=== PATIENT | female | born 1935 | race African-American/Black ===

== ENCOUNTER 2017-05-05 20:37 | Emergency (ER) | payer MEDICARE, BC ==
[~2017-05-05] VITALS: Ht 172.7 cm; Wt 70.3 kg
[2017-05-05 20:37] VITALS: BP 162/75
== END 2017-05-05 22:08 | disposition home or self-care (01) ==
LOC: ER 20:41
DX: S90.821A Blister (nonthermal), right foot, initial encounter (principal); E11.9 Type 2 diabetes mellitus without complications; I10 Essential (primary) hypertension; I25.2 Old myocardial infarction; X58.XXXA Exposure to other specified factors, initial encounter; Y93.89 Activity, other specified; Y92.89 Other specified places as the place of occurrence of the external cause; Y99.9 Unspecified external cause status
CPT/HCPCS: 99283; A4606; Z7610

== ENCOUNTER 2017-05-07 09:25 | Outpatient (CLI) | payer MEDICARE, BC | END 2017-05-07 23:59 | disposition home or self-care (01) | LOC: WOU 09:25 | PROVIDERS: ATTEND Podiatrist Foot & Ankle Surgery | DX: S90.822A Blister (nonthermal), left foot, initial encounter (principal); S90.521A Blister (nonthermal), right ankle, initial encounter; S90.821A Blister (nonthermal), right foot, initial encounter; X58.XXXA Exposure to other specified factors, initial encounter; Y93.01 Activity, walking, marching and hiking; Y92.89 Other specified places as the place of occurrence of the external cause; B35.1 Tinea unguium; R60.0 Localized edema; L90.9 Atrophic disorder of skin, unspecified; Z87.898 Personal history of other specified conditions; I25.2 Old myocardial infarction; E11.9 Type 2 diabetes mellitus without complications; Z79.82 Long term (current) use of aspirin; Z79.899 Other long term (current) drug therapy; Z88.6 Allergy status to analgesic agent; Z88.8 Allergy status to other drugs, medicaments and biological substances | CPT/HCPCS: 10060; 87070; 87075; A6207; A6402 ==

== ENCOUNTER 2017-05-13 11:49 | Outpatient (CLI) | payer MEDICARE, BC | END 2017-05-13 23:59 | disposition home or self-care (01) | LOC: WOU 11:49 | PROVIDERS: ATTEND Podiatrist Foot & Ankle Surgery | DX: T79.2XXA Traumatic secondary and recurrent hemorrhage and seroma, initial encounter (principal); X58.XXXA Exposure to other specified factors, initial encounter; S90.521D Blister (nonthermal), right ankle, subsequent encounter; S90.821D Blister (nonthermal), right foot, subsequent encounter; S90.822D Blister (nonthermal), left foot, subsequent encounter; X58.XXXD Exposure to other specified factors, subsequent encounter; I25.2 Old myocardial infarction; I10 Essential (primary) hypertension; E78.5 Hyperlipidemia, unspecified; Z87.891 Personal history of nicotine dependence; Z83.3 Family history of diabetes mellitus; Z88.6 Allergy status to analgesic agent; Z88.8 Allergy status to other drugs, medicaments and biological substances; E11.9 Type 2 diabetes mellitus without complications; R60.0 Localized edema; M79.672 Pain in left foot; M79.671 Pain in right foot | CPT/HCPCS: 10140; 87070; A6402 ==

== ENCOUNTER 2017-05-20 12:10 | Outpatient (CLI) | payer MEDICARE, BC | END 2017-05-20 23:59 | disposition home or self-care (01) | LOC: WOU 12:10 | PROVIDERS: ATTEND Podiatrist Foot & Ankle Surgery | DX: S91.002D Unspecified open wound, left ankle, subsequent encounter (principal); X58.XXXD Exposure to other specified factors, subsequent encounter; S90.822A Blister (nonthermal), left foot, initial encounter; X58.XXXA Exposure to other specified factors, initial encounter; Y92.89 Other specified places as the place of occurrence of the external cause; Z88.6 Allergy status to analgesic agent; Z88.8 Allergy status to other drugs, medicaments and biological substances | CPT/HCPCS: A6402 ×2; G0463 ==

== ENCOUNTER 2017-06-04 11:25 | Outpatient (CLI) | payer MEDICARE, BC | END 2017-06-04 23:59 | disposition home or self-care (01) | LOC: WOU 11:25 | PROVIDERS: ATTEND Podiatrist Foot & Ankle Surgery | DX: S90.522D Blister (nonthermal), left ankle, subsequent encounter (principal); S90.822D Blister (nonthermal), left foot, subsequent encounter; X58.XXXD Exposure to other specified factors, subsequent encounter; R60.0 Localized edema; B35.1 Tinea unguium; M20.40 Other hammer toe(s) (acquired), unspecified foot; L90.9 Atrophic disorder of skin, unspecified | CPT/HCPCS: G0463 ==

== ENCOUNTER 2017-11-24 02:56 | Emergency (ER) | payer MEDICARE, BC ==
[~2017-11-24] VITALS: Ht 177.8 cm; Wt 82.6 kg
--- NOTE | 2017-11-24 03:10 | NUR ---
TO BED 82 YO FEMALE PATIENT BIB SELF C/O ABD PAIN WITH DIARRHEA X 24 HOURS AND CHEST PAIN TONIGHT. PATIENT IS AAOX3, NAD NOTED. VSS. NONDIAPHORETIC. AMBULATORY. COMFORT MEASURES RENDERED. TELE MONITOR IN PLACE.
--- NOTE | 2017-11-24 03:18 | NUR ---
STARTED A SALINE LOCK ON THE LAC G18, BLOOD DRAWN AND SENT TO LAB.
[2017-11-24 03:37] LABS: BASOPHILS % (AUTO) 0.5 % (0.0-2.0); EOSINOPHILS % (AUTO) 10.6 % (0.0-6.0); HEMATOCRIT 37 % (33-45); LYMPHOCYTES # (AUTO) 1.4 /CMM (0.8-4.8); MEAN CORPUSCULAR HGB CONC 33 g/dl (31.0-36.0); MEAN CORPUSCULAR VOLUME 88 fL (82-100); MONOCYTES # (AUTO) 0.9 /CMM (0.1-1.30); MONOCYTES % (AUTO) 13.8 % (2.0-12.0); NEUTROPHILS # (AUTO) 3.3 /CMM (1.8-8.9); NEUTROPHILS % (AUTO) 52.1 % (43.0-81.0); PLATELET COUNT (AUTO) 166 /CMM (150-450); RDW COEFFICIENT OF VARIATION 15.9 (11.5-15.0); RED BLOOD CELL COUNT(AUTO) 4.13 MIL/uL (4.0-5.2); WHITE BLOOD COUNT (AUTO) 6.3 K/uL (4.3-11.0)
[2017-11-24 03:49] LABS: INR 0.9 (0.87-1.13)
[2017-11-24 03:53] LABS: ALANINE AMINOTRANSFERASE 24 U/L (12-78); ALBUMIN 3.7 g/dL (3.4-5.0); ALKALINE PHOSPHATASE 79 U/L (46-116); ASPARTATE AMINOTRANSFERASE 16 U/L (15-37); BILIRUBIN,TOTAL 0.4 mg/dL (0.2-1.0); CALCIUM, SERUM 9.7 mg/dL (8.5-10.1); CARBON DIOXIDE 24 mmol/L (21-32); CHLORIDE 108 mmol/L (98-107); CREATININE 1.3 mg/dL (0.6-1.3); GLUCOSE 104 mg/dL (74-106); POTASSIUM 4.3 mmol/L (3.5-5.1); SODIUM SERUM 142 mmol/L (136-145); TOTAL PROTEIN, SERUM 7.5 g/dL (6.4-8.2); UREA NITROGEN, BLOOD 22 mg/dL (7-18)
[2017-11-24 04:48] LABS: TROPONIN I < 0.017 ng/mL (0.00-0.056)
--- NOTE | 2017-11-24 05:16 | NUR ---
IV removed. Catheter intact and site benign. Pressure and 4x4 applied to site. No bleeding noted. Patient discharged to home in stable condition. Written and verbal after care instructions given. Patient verbalizes understanding of instruction. Patient is ambulatory with steady gait. vss. nad noted. no further complaints.
[2017-11-24 05:17] VITALS: BP 112/64
== END 2017-11-24 05:18 | disposition home or self-care (01) ==
LOC: ER 02:58
DX: R10.84 Generalized abdominal pain (principal); R07.9 Chest pain, unspecified; R19.7 Diarrhea, unspecified; E11.9 Type 2 diabetes mellitus without complications; I10 Essential (primary) hypertension; I25.2 Old myocardial infarction
CPT/HCPCS: 36415; 71045-TC; 80053-TC; 83690-TC; 84484-TC; 85025-TC; 85730-TC; A4606; Z7610

== ENCOUNTER 2019-08-18 02:55 | Outpatient (CLI) | payer MEDICARE, BC | END 2019-08-18 23:59 | disposition home or self-care (01) | LOC: WOU 02:55 | PROVIDERS: ATTEND Podiatrist Foot & Ankle Surgery | DX: L84 Corns and callosities (principal); M79.671 Pain in right foot; M79.672 Pain in left foot; L60.3 Nail dystrophy; L90.9 Atrophic disorder of skin, unspecified; M20.40 Other hammer toe(s) (acquired), unspecified foot | CPT/HCPCS: G0463 ==

== ENCOUNTER 2019-10-01 10:10 | Outpatient (CLI) | payer MEDICARE, BC | END 2019-10-01 23:59 | disposition home or self-care (01) | LOC: WOU 10:10 | PROVIDERS: ATTEND Podiatrist Foot & Ankle Surgery | DX: L85.9 Epidermal thickening, unspecified (principal); L84 Corns and callosities; M79.671 Pain in right foot; M79.672 Pain in left foot; L90.9 Atrophic disorder of skin, unspecified ==

== ENCOUNTER 2020-01-25 11:10 | Outpatient (CLI) | payer MEDICARE, BC | END 2020-01-25 23:59 | disposition home or self-care (01) | LOC: WOU 11:10 | PROVIDERS: ATTEND Podiatrist Foot & Ankle Surgery | DX: L84 Corns and callosities (principal); M79.672 Pain in left foot; M79.671 Pain in right foot; B35.1 Tinea unguium; L85.9 Epidermal thickening, unspecified | CPT/HCPCS: G0463 ==

== ENCOUNTER → 2020-09-06 | Outpatient (CLI) | payer MEDICARE, BC | END | disposition home or self-care (01) | LOC: WOU 13:15 | PROVIDERS: ATTEND Podiatrist Foot & Ankle Surgery | DX: L84 Corns and callosities (principal); M71.572 Other bursitis, not elsewhere classified, left ankle and foot; M20.42 Other hammer toe(s) (acquired), left foot; M20.41 Other hammer toe(s) (acquired), right foot; B35.1 Tinea unguium; L85.9 Epidermal thickening, unspecified; M79.672 Pain in left foot; M79.671 Pain in right foot | CPT/HCPCS: G0463 ==

== ENCOUNTER 2020-11-08 13:30 | Outpatient (CLI) | payer MEDICARE, BC | END 2020-11-08 23:59 | disposition home or self-care (01) | LOC: WOU 13:30 | PROVIDERS: ATTEND Podiatrist Foot & Ankle Surgery | DX: L84 Corns and callosities (principal); M71.572 Other bursitis, not elsewhere classified, left ankle and foot; L85.9 Epidermal thickening, unspecified; B35.1 Tinea unguium; M79.672 Pain in left foot; M79.671 Pain in right foot; M20.42 Other hammer toe(s) (acquired), left foot; M20.41 Other hammer toe(s) (acquired), right foot | CPT/HCPCS: G0463 ==

== ENCOUNTER 2020-11-24 14:10 | Outpatient (CLI) | payer MEDICARE, BC | END 2020-11-24 23:59 | disposition home or self-care (01) | LOC: RAD 14:10 | PROVIDERS: ATTEND Podiatrist Foot & Ankle Surgery | DX: M19.072 Primary osteoarthritis, left ankle and foot (principal); M19.071 Primary osteoarthritis, right ankle and foot; M85.872 Other specified disorders of bone density and structure, left ankle and foot; M20.42 Other hammer toe(s) (acquired), left foot; M20.41 Other hammer toe(s) (acquired), right foot ==

== ENCOUNTER 2020-12-13 13:50 | Outpatient (CLI) | payer MEDICARE, BC | END 2020-12-13 23:59 | disposition home or self-care (01) | LOC: WOU 13:50 | PROVIDERS: ATTEND Podiatrist Foot & Ankle Surgery | DX: L84 Corns and callosities (principal); M20.42 Other hammer toe(s) (acquired), left foot; M20.41 Other hammer toe(s) (acquired), right foot; L85.9 Epidermal thickening, unspecified; B35.1 Tinea unguium; M71.572 Other bursitis, not elsewhere classified, left ankle and foot; M79.672 Pain in left foot; M79.671 Pain in right foot | CPT/HCPCS: G0463 ==

== ENCOUNTER 2021-01-26 11:15 | Outpatient (CLI) | payer MEDICARE, BC ==
[2021-01-26] MEDS ORDERED: UREA 10% -AHA 4% CREAM 57 GM TUBE ONE (11:52)
== END 2021-01-26 23:59 | disposition home or self-care (01) ==
LOC: WOU 11:15
PROVIDERS: ATTEND Podiatrist Foot & Ankle Surgery
DX: M71.572 Other bursitis, not elsewhere classified, left ankle and foot (principal); L84 Corns and callosities; L85.9 Epidermal thickening, unspecified; B35.1 Tinea unguium; M20.42 Other hammer toe(s) (acquired), left foot; M20.41 Other hammer toe(s) (acquired), right foot; M79.672 Pain in left foot; M79.671 Pain in right foot
CPT/HCPCS: G0463

== ENCOUNTER 2021-02-28 13:25 | Outpatient (CLI) | payer MEDICARE, BC | END 2021-02-28 23:59 | disposition home or self-care (01) | LOC: WOU 13:25 | PROVIDERS: ATTEND Podiatrist Foot & Ankle Surgery | DX: L84 Corns and callosities (principal); M71.572 Other bursitis, not elsewhere classified, left ankle and foot; B35.1 Tinea unguium; M20.42 Other hammer toe(s) (acquired), left foot; M20.41 Other hammer toe(s) (acquired), right foot; M79.672 Pain in left foot; M79.671 Pain in right foot; L85.9 Epidermal thickening, unspecified | CPT/HCPCS: G0463 ==

== ENCOUNTER 2021-04-11 13:57 | Outpatient (CLI) | payer MEDICARE, BC | END 2021-04-11 23:59 | disposition home or self-care (01) | LOC: WOU 13:57 | PROVIDERS: ATTEND Podiatrist Foot & Ankle Surgery | DX: L60.0 Ingrowing nail (principal); L84 Corns and callosities; B35.1 Tinea unguium; M79.672 Pain in left foot; M79.671 Pain in right foot; E11.9 Type 2 diabetes mellitus without complications; I10 Essential (primary) hypertension; E78.5 Hyperlipidemia, unspecified | CPT/HCPCS: G0463 ==

== ENCOUNTER 2021-07-06 11:30 | Outpatient (CLI) | payer MEDICARE, BC | END 2021-07-06 23:59 | disposition home or self-care (01) | LOC: WOU 11:30 | PROVIDERS: ATTEND Podiatrist Foot & Ankle Surgery | DX: L60.0 Ingrowing nail (principal); L84 Corns and callosities; B35.1 Tinea unguium; M79.672 Pain in left foot; M79.671 Pain in right foot | CPT/HCPCS: G0463 ==

== ENCOUNTER 2021-08-03 11:50 | Outpatient (CLI) | payer MEDICARE, BC | END 2021-08-03 23:59 | disposition home or self-care (01) | LOC: WOU 11:50 | PROVIDERS: ATTEND Podiatrist Foot & Ankle Surgery | DX: L60.0 Ingrowing nail (principal); B35.1 Tinea unguium; L84 Corns and callosities; M20.42 Other hammer toe(s) (acquired), left foot; M20.41 Other hammer toe(s) (acquired), right foot; M79.672 Pain in left foot; M79.671 Pain in right foot | CPT/HCPCS: G0463 ==

== ENCOUNTER 2021-08-29 14:15 | Outpatient (CLI) | payer MEDICARE, BC | END 2021-08-29 23:59 | disposition home or self-care (01) | LOC: WOU 14:15 | PROVIDERS: ATTEND Podiatrist Foot & Ankle Surgery | DX: L60.0 Ingrowing nail (principal); L84 Corns and callosities; B35.1 Tinea unguium; M79.672 Pain in left foot; M79.671 Pain in right foot; M62.579 Muscle wasting and atrophy, not elsewhere classified, unspecified ankle and foot; M20.42 Other hammer toe(s) (acquired), left foot; M20.41 Other hammer toe(s) (acquired), right foot | CPT/HCPCS: G0463 ==

== ENCOUNTER → 2021-09-19 | Outpatient (CLI) | payer MEDICARE, BC | END | disposition home or self-care (01) | LOC: WOU 14:00 | PROVIDERS: ATTEND Podiatrist Foot & Ankle Surgery | DX: L84 Corns and callosities (principal); L60.0 Ingrowing nail; B35.1 Tinea unguium; M20.42 Other hammer toe(s) (acquired), left foot; M20.41 Other hammer toe(s) (acquired), right foot; M62.579 Muscle wasting and atrophy, not elsewhere classified, unspecified ankle and foot; M79.672 Pain in left foot; M79.671 Pain in right foot | CPT/HCPCS: G0463 ==

== ENCOUNTER 2021-10-10 13:30 | Outpatient (CLI) | payer MEDICARE, BC | END 2021-10-10 23:59 | disposition home or self-care (01) | LOC: WOU 13:30 | PROVIDERS: ATTEND Podiatrist Foot & Ankle Surgery | DX: L60.3 Nail dystrophy (principal); L84 Corns and callosities; B35.1 Tinea unguium; M20.42 Other hammer toe(s) (acquired), left foot; M20.41 Other hammer toe(s) (acquired), right foot; M79.672 Pain in left foot; M79.671 Pain in right foot | CPT/HCPCS: G0463 ==

== ENCOUNTER 2021-10-31 13:00 | Outpatient (CLI) | payer MEDICARE, BC | END 2021-10-31 23:59 | disposition home or self-care (01) | LOC: WOU 13:00 | PROVIDERS: ATTEND Podiatrist Foot & Ankle Surgery | DX: M20.42 Other hammer toe(s) (acquired), left foot (principal); M20.41 Other hammer toe(s) (acquired), right foot; L84 Corns and callosities; B35.1 Tinea unguium; L60.3 Nail dystrophy; M79.672 Pain in left foot; M79.671 Pain in right foot | CPT/HCPCS: G0463 ==

== ENCOUNTER 2021-11-21 14:45 | Outpatient (CLI) | payer MEDICARE, BC | END 2021-11-21 23:59 | disposition home or self-care (01) | LOC: WOU 14:45 | PROVIDERS: ATTEND Podiatrist Foot & Ankle Surgery | DX: L03.116 Cellulitis of left lower limb (principal); R60.0 Localized edema; L84 Corns and callosities; M20.42 Other hammer toe(s) (acquired), left foot; M20.41 Other hammer toe(s) (acquired), right foot; L60.3 Nail dystrophy; M79.672 Pain in left foot; M79.671 Pain in right foot; B35.1 Tinea unguium; I10 Essential (primary) hypertension; M25.572 Pain in left ankle and joints of left foot; Z87.891 Personal history of nicotine dependence | CPT/HCPCS: G0463 ==

== ENCOUNTER 2021-11-30 11:05 | Outpatient (CLI) | payer MEDICARE, BC ==
[2021-11-30] MEDS ORDERED: LIDOCAINE 2% JEL 5 ML TUBE ONE (11:46)
[2021-11-30] MEDS ORDERED: CLOTRIMAZOLE 1% 15 GM TUBE TP ONE (13:38)
[2021-11-30] MEDS ORDERED: TRIAMCINOLONE ACETONIDE 0.1% CR 15 GM TUBE TP ONE (13:38)
== END 2021-11-30 23:59 | disposition home or self-care (01) ==
LOC: WOU 11:05
PROVIDERS: ATTEND Podiatrist Foot & Ankle Surgery
DX: I87.2 Venous insufficiency (chronic) (peripheral) (principal); M20.42 Other hammer toe(s) (acquired), left foot; M20.41 Other hammer toe(s) (acquired), right foot; L84 Corns and callosities; B35.1 Tinea unguium; L60.3 Nail dystrophy; M79.672 Pain in left foot; M79.671 Pain in right foot; M25.572 Pain in left ankle and joints of left foot
CPT/HCPCS: G0463

== ENCOUNTER 2021-12-04 11:50 | Outpatient (CLI) | payer MEDICARE, BC ==
[2021-12-04] MEDS ORDERED: LIDOCAINE 2% JEL 5 ML TUBE ONE (12:14)
== END 2021-12-04 23:59 | disposition home or self-care (01) ==
LOC: WOU 11:50
PROVIDERS: ATTEND Podiatrist Foot & Ankle Surgery
DX: L03.116 Cellulitis of left lower limb (principal); M20.42 Other hammer toe(s) (acquired), left foot; M20.41 Other hammer toe(s) (acquired), right foot; B35.1 Tinea unguium; L60.3 Nail dystrophy; L84 Corns and callosities; R60.1 Generalized edema; I10 Essential (primary) hypertension; M25.572 Pain in left ankle and joints of left foot; Z87.891 Personal history of nicotine dependence
CPT/HCPCS: G0463

== ENCOUNTER 2021-12-07 11:45 | Outpatient (CLI) | payer MEDICARE, BC ==
[2021-12-07] MEDS ORDERED: LIDOCAINE 2% JEL 5 ML TUBE ONE (12:04)
== END 2021-12-07 23:59 | disposition home or self-care (01) ==
LOC: WOU 11:45
PROVIDERS: ATTEND Podiatrist Foot & Ankle Surgery
DX: I87.312 Chronic venous hypertension (idiopathic) with ulcer of left lower extremity (principal); L97.828 Non-pressure chronic ulcer of other part of left lower leg with other specified severity; L03.116 Cellulitis of left lower limb; M20.42 Other hammer toe(s) (acquired), left foot; M20.41 Other hammer toe(s) (acquired), right foot; L84 Corns and callosities; B35.1 Tinea unguium; M79.672 Pain in left foot; M79.671 Pain in right foot; L60.3 Nail dystrophy; R60.1 Generalized edema
CPT/HCPCS: 29581; A6207; A6209

== ENCOUNTER 2021-12-11 11:50 | Outpatient (CLI) | payer MEDICARE, BC | END 2021-12-11 23:59 | disposition home or self-care (01) | LOC: WOU 11:50 | PROVIDERS: ATTEND Podiatrist Foot & Ankle Surgery | DX: I87.312 Chronic venous hypertension (idiopathic) with ulcer of left lower extremity (principal); L97.328 Non-pressure chronic ulcer of left ankle with other specified severity; R60.0 Localized edema; M20.42 Other hammer toe(s) (acquired), left foot; M20.41 Other hammer toe(s) (acquired), right foot; E11.9 Type 2 diabetes mellitus without complications; B35.1 Tinea unguium; L84 Corns and callosities; M79.672 Pain in left foot; M79.671 Pain in right foot; L60.3 Nail dystrophy | CPT/HCPCS: G0463 ==

== ENCOUNTER 2021-12-14 10:15 | Outpatient (CLI) | payer MEDICARE, BC ==
[2021-12-14] MEDS ORDERED: LIDOCAINE 2% JEL 5 ML TUBE ONE (10:41)
== END 2021-12-14 23:59 | disposition home health service (06) ==
LOC: WOU 10:15
PROVIDERS: ATTEND Podiatrist Foot & Ankle Surgery
DX: I87.312 Chronic venous hypertension (idiopathic) with ulcer of left lower extremity (principal); L97.828 Non-pressure chronic ulcer of other part of left lower leg with other specified severity; M20.42 Other hammer toe(s) (acquired), left foot; M20.41 Other hammer toe(s) (acquired), right foot; L84 Corns and callosities; L60.3 Nail dystrophy; R60.1 Generalized edema; M79.672 Pain in left foot; M79.671 Pain in right foot; B35.1 Tinea unguium
CPT/HCPCS: G0463

== ENCOUNTER 2021-12-18 11:40 | Outpatient (CLI) | payer MEDICARE, BC ==
[2021-12-18] MEDS ORDERED: LIDOCAINE 2% JEL 5 ML TUBE ONE (12:18)
== END 2021-12-18 23:59 | disposition home health service (06) ==
LOC: WOU 11:40
PROVIDERS: ATTEND Podiatrist Foot & Ankle Surgery
DX: I87.312 Chronic venous hypertension (idiopathic) with ulcer of left lower extremity (principal); L97.328 Non-pressure chronic ulcer of left ankle with other specified severity; M25.572 Pain in left ankle and joints of left foot; M20.42 Other hammer toe(s) (acquired), left foot; M20.41 Other hammer toe(s) (acquired), right foot; M79.672 Pain in left foot; M79.671 Pain in right foot; B35.1 Tinea unguium; L84 Corns and callosities; L60.3 Nail dystrophy
CPT/HCPCS: G0463

== ENCOUNTER → 2021-12-21 | Outpatient (CLI) | payer MEDICARE, BC ==
[~2021-12-21] MED LIST: LIDOCAINE SOLN 4% 50 ML BOTTLE ONE
== END | disposition home health service (06) ==
LOC: WOU 11:35
PROVIDERS: ATTEND Podiatrist Foot & Ankle Surgery
DX: I87.312 Chronic venous hypertension (idiopathic) with ulcer of left lower extremity (principal); L97.822 Non-pressure chronic ulcer of other part of left lower leg with fat layer exposed; L97.828 Non-pressure chronic ulcer of other part of left lower leg with other specified severity; M20.42 Other hammer toe(s) (acquired), left foot; M20.41 Other hammer toe(s) (acquired), right foot; L84 Corns and callosities; B35.1 Tinea unguium; L60.3 Nail dystrophy; M25.572 Pain in left ankle and joints of left foot; R60.1 Generalized edema; M79.672 Pain in left foot; M79.671 Pain in right foot; Z87.891 Personal history of nicotine dependence

== ENCOUNTER 2021-12-26 13:40 | Outpatient (CLI) | payer MEDICARE, BC ==
[2021-12-26] MEDS ORDERED: Z GUARD REMEDY 2 OZ OINT TP ONE (14:07)
[2021-12-26] MEDS ORDERED: LIDOCAINE 2% JEL 5 ML TUBE ONE (14:28)
== END 2021-12-26 23:59 | disposition home health service (06) ==
LOC: WOU 13:40
PROVIDERS: ATTEND Podiatrist Foot & Ankle Surgery
DX: I87.312 Chronic venous hypertension (idiopathic) with ulcer of left lower extremity (principal); L97.822 Non-pressure chronic ulcer of other part of left lower leg with fat layer exposed; M20.42 Other hammer toe(s) (acquired), left foot; M20.41 Other hammer toe(s) (acquired), right foot; B35.1 Tinea unguium; L84 Corns and callosities; L60.3 Nail dystrophy; M25.572 Pain in left ankle and joints of left foot; M79.672 Pain in left foot; M79.671 Pain in right foot

== ENCOUNTER 2022-01-02 09:30 | Outpatient (CLI) | payer MEDICARE, BC | END 2022-01-02 23:59 | disposition home or self-care (01) | LOC: WOU 09:30 | PROVIDERS: ATTEND Podiatrist Foot & Ankle Surgery | DX: L03.116 Cellulitis of left lower limb (principal); I87.312 Chronic venous hypertension (idiopathic) with ulcer of left lower extremity; L97.329 Non-pressure chronic ulcer of left ankle with unspecified severity; L84 Corns and callosities; L60.3 Nail dystrophy; R60.1 Generalized edema; M20.42 Other hammer toe(s) (acquired), left foot; M20.41 Other hammer toe(s) (acquired), right foot; M25.572 Pain in left ankle and joints of left foot; M79.672 Pain in left foot; M79.671 Pain in right foot | CPT/HCPCS: G0463 ==

== ENCOUNTER 2022-01-09 13:45 | Outpatient (CLI) | payer MEDICARE, BC ==
[2022-01-09] MEDS ORDERED: GENTAMICIN 0.1% CREAM 15 GM TUBE ONE (15:02)
[2022-01-09] MEDS ORDERED: LIDOCAINE 2% JEL 5 ML TUBE ONE (15:13)
== END 2022-01-09 23:59 | disposition home health service (06) ==
LOC: WOU 13:45
PROVIDERS: ATTEND Podiatrist Foot & Ankle Surgery
DX: I87.312 Chronic venous hypertension (idiopathic) with ulcer of left lower extremity (principal); L97.822 Non-pressure chronic ulcer of other part of left lower leg with fat layer exposed; L03.116 Cellulitis of left lower limb; M20.42 Other hammer toe(s) (acquired), left foot; M20.41 Other hammer toe(s) (acquired), right foot; B35.1 Tinea unguium; L84 Corns and callosities; L60.3 Nail dystrophy; M25.572 Pain in left ankle and joints of left foot; R60.1 Generalized edema
CPT/HCPCS: G0463

== ENCOUNTER 2022-01-11 11:20 | Outpatient (CLI) | payer MEDICARE, BC ==
[2022-01-11] MEDS ORDERED: LIDOCAINE 2% JEL 5 ML TUBE ONE ×2 (11:48→11:49)
[2022-01-11] MEDS ORDERED: GENTAMICIN 0.1% CREAM 15 GM TUBE ONE (12:08)
[2022-01-11] MEDS ORDERED: DAKINS HALF STRENGTH (0.25%) 480 ML BOTTLE ONE (12:17)
== END 2022-01-11 23:59 | disposition home health service (06) ==
LOC: WOU 11:20
PROVIDERS: ATTEND Podiatrist Foot & Ankle Surgery
DX: I87.312 Chronic venous hypertension (idiopathic) with ulcer of left lower extremity (principal); L97.822 Non-pressure chronic ulcer of other part of left lower leg with fat layer exposed; L03.116 Cellulitis of left lower limb; E11.9 Type 2 diabetes mellitus without complications; R60.1 Generalized edema; M20.42 Other hammer toe(s) (acquired), left foot; M20.41 Other hammer toe(s) (acquired), right foot; L84 Corns and callosities; L60.3 Nail dystrophy; M79.672 Pain in left foot; M79.671 Pain in right foot
CPT/HCPCS: 87070 ×2; 87075 ×2; 87077; 87186; 97597; A6402

== ENCOUNTER 2022-01-16 13:50 | Outpatient (CLI) | payer MEDICARE, BC ==
[2022-01-16] MEDS ORDERED: LIDOCAINE SOLN 4% 50 ML BOTTLE ONE (14:27)
== END 2022-01-16 23:59 | disposition home health service (06) ==
LOC: WOU 13:50
PROVIDERS: ATTEND Podiatrist Foot & Ankle Surgery
DX: I87.312 Chronic venous hypertension (idiopathic) with ulcer of left lower extremity (principal); L97.822 Non-pressure chronic ulcer of other part of left lower leg with fat layer exposed; L03.116 Cellulitis of left lower limb; B35.1 Tinea unguium; L60.3 Nail dystrophy; L84 Corns and callosities; M79.672 Pain in left foot; M79.671 Pain in right foot; M20.42 Other hammer toe(s) (acquired), left foot; M20.41 Other hammer toe(s) (acquired), right foot; R60.1 Generalized edema; M25.572 Pain in left ankle and joints of left foot
CPT/HCPCS: 11042; 11045; A6207 ×2

== ENCOUNTER 2022-01-18 11:35 | Outpatient (CLI) | payer MEDICARE, BC ==
[2022-01-18] MEDS ORDERED: LIDOCAINE SOLN 4% 50 ML BOTTLE ONE (11:41)
[2022-01-18] MEDS ORDERED: GENTAMICIN 0.1% CREAM 15 GM TUBE ONE (12:17)
[2022-01-18] MEDS ORDERED: Z GUARD REMEDY 2 OZ OINT TP ONE (12:17)
[2022-01-18] MEDS ORDERED: DAKINS HALF STRENGTH (0.25%) 480 ML BOTTLE ONE (12:34)
== END 2022-01-18 23:59 | disposition home health service (06) ==
LOC: WOU 11:35
PROVIDERS: ATTEND Podiatrist Foot & Ankle Surgery
DX: I87.312 Chronic venous hypertension (idiopathic) with ulcer of left lower extremity (principal); L97.822 Non-pressure chronic ulcer of other part of left lower leg with fat layer exposed; L84 Corns and callosities; L03.116 Cellulitis of left lower limb; M20.42 Other hammer toe(s) (acquired), left foot; M20.41 Other hammer toe(s) (acquired), right foot; M25.572 Pain in left ankle and joints of left foot; M79.672 Pain in left foot; M79.671 Pain in right foot; B35.1 Tinea unguium; L60.3 Nail dystrophy
CPT/HCPCS: 11042; 11055; A6207

== ENCOUNTER 2022-01-23 14:15 | Outpatient (CLI) | payer MEDICARE, BC ==
[2022-01-23] MEDS ORDERED: COLLAGENASE 5 GM TUBE UD TP ONE (15:26)
[2022-01-23] MEDS ORDERED: Z GUARD REMEDY 2 OZ OINT TP ONE (15:26)
== END 2022-01-23 23:59 | disposition home health service (06) ==
LOC: WOU 14:15
PROVIDERS: ATTEND Podiatrist Foot & Ankle Surgery
DX: I87.312 Chronic venous hypertension (idiopathic) with ulcer of left lower extremity (principal); L97.822 Non-pressure chronic ulcer of other part of left lower leg with fat layer exposed; L03.116 Cellulitis of left lower limb; R60.1 Generalized edema; M20.42 Other hammer toe(s) (acquired), left foot; M20.41 Other hammer toe(s) (acquired), right foot; M79.672 Pain in left foot; M79.671 Pain in right foot; L84 Corns and callosities; B35.1 Tinea unguium
CPT/HCPCS: 11042; A6207

== ENCOUNTER 2022-01-30 14:10 | Outpatient (CLI) | payer MEDICARE, BC ==
[2022-01-30] MEDS ORDERED: Z GUARD REMEDY 2 OZ OINT TP ONE (14:40)
[2022-01-30] MEDS ORDERED: COLLAGENASE 5 GM TUBE UD TP ONE (14:41)
== END 2022-01-30 23:59 | disposition home health service (06) ==
LOC: WOU 14:10
PROVIDERS: ATTEND Podiatrist Foot & Ankle Surgery
DX: I87.312 Chronic venous hypertension (idiopathic) with ulcer of left lower extremity (principal); L97.322 Non-pressure chronic ulcer of left ankle with fat layer exposed; R60.1 Generalized edema; M20.42 Other hammer toe(s) (acquired), left foot; M20.41 Other hammer toe(s) (acquired), right foot; L84 Corns and callosities; L60.3 Nail dystrophy; M25.572 Pain in left ankle and joints of left foot; B35.1 Tinea unguium
CPT/HCPCS: G0463

== ENCOUNTER 2022-02-06 14:10 | Outpatient (CLI) | payer MEDICARE, BC ==
[2022-02-06] MEDS ORDERED: Z GUARD REMEDY 2 OZ OINT TP ONE (14:42)
== END 2022-02-06 23:59 | disposition home health service (06) ==
LOC: WOU 14:10
PROVIDERS: ATTEND Podiatrist Foot & Ankle Surgery
DX: I87.312 Chronic venous hypertension (idiopathic) with ulcer of left lower extremity (principal); L97.822 Non-pressure chronic ulcer of other part of left lower leg with fat layer exposed; M20.42 Other hammer toe(s) (acquired), left foot; L84 Corns and callosities; M20.41 Other hammer toe(s) (acquired), right foot; L60.3 Nail dystrophy; R60.1 Generalized edema; B35.1 Tinea unguium; M79.672 Pain in left foot; M25.572 Pain in left ankle and joints of left foot; M79.671 Pain in right foot; I10 Essential (primary) hypertension; Z87.891 Personal history of nicotine dependence
CPT/HCPCS: G0463

== ENCOUNTER 2022-02-13 14:15 | Outpatient (CLI) | payer MEDICARE, BC ==
[2022-02-13] MEDS ORDERED: Z GUARD REMEDY 2 OZ OINT TP ONE (15:10)
== END 2022-02-13 23:59 | disposition home health service (06) ==
LOC: WOU 14:15
PROVIDERS: ATTEND Podiatrist Foot & Ankle Surgery
DX: I87.312 Chronic venous hypertension (idiopathic) with ulcer of left lower extremity (principal); L97.822 Non-pressure chronic ulcer of other part of left lower leg with fat layer exposed; M25.572 Pain in left ankle and joints of left foot; M20.42 Other hammer toe(s) (acquired), left foot; M20.41 Other hammer toe(s) (acquired), right foot; L84 Corns and callosities; B35.1 Tinea unguium; M79.672 Pain in left foot; M79.671 Pain in right foot; L60.3 Nail dystrophy; R60.1 Generalized edema
CPT/HCPCS: 11042; 11045

== ENCOUNTER 2022-02-20 14:10 | Outpatient (CLI) | payer MEDICARE, BC ==
[2022-02-20] MEDS ORDERED: Z GUARD REMEDY 2 OZ OINT TP ONE (15:11)
== END 2022-02-20 23:59 | disposition home health service (06) ==
LOC: WOU 14:10
PROVIDERS: ATTEND Podiatrist Foot & Ankle Surgery
DX: I87.312 Chronic venous hypertension (idiopathic) with ulcer of left lower extremity (principal); L97.822 Non-pressure chronic ulcer of other part of left lower leg with fat layer exposed; M20.42 Other hammer toe(s) (acquired), left foot; M20.41 Other hammer toe(s) (acquired), right foot; L84 Corns and callosities; B35.1 Tinea unguium; M79.672 Pain in left foot; M79.671 Pain in right foot; L60.3 Nail dystrophy
CPT/HCPCS: G0463

== ENCOUNTER 2022-02-27 13:20 | Outpatient (CLI) | payer MEDICARE, BC ==
[2022-02-27] MEDS ORDERED: GENTAMICIN 0.1% CREAM 15 GM TUBE ONE (14:05)
[2022-02-27] MEDS ORDERED: COLLAGENASE 5 GM TUBE UD TP ONE (14:06)
[2022-02-27] MEDS ORDERED: Z GUARD REMEDY 2 OZ OINT TP ONE (14:13)
== END 2022-02-27 23:59 | disposition home health service (06) ==
LOC: WOU 13:20
PROVIDERS: ATTEND Podiatrist Foot & Ankle Surgery
DX: I87.312 Chronic venous hypertension (idiopathic) with ulcer of left lower extremity (principal); L97.822 Non-pressure chronic ulcer of other part of left lower leg with fat layer exposed; M20.42 Other hammer toe(s) (acquired), left foot; M20.41 Other hammer toe(s) (acquired), right foot; L84 Corns and callosities; B35.1 Tinea unguium; M79.672 Pain in left foot; M79.671 Pain in right foot; M25.572 Pain in left ankle and joints of left foot
CPT/HCPCS: G0463

== ENCOUNTER 2022-03-06 13:15 | Outpatient (CLI) | payer MEDICARE, BC ==
[2022-03-06] MEDS ORDERED: COLLAGENASE 5 GM TUBE UD TP ONE (13:48)
[2022-03-06] MEDS ORDERED: GENTAMICIN 0.1% CREAM 15 GM TUBE ONE (13:49)
[2022-03-06] MEDS ORDERED: Z GUARD REMEDY 2 OZ OINT TP ONE (13:56)
== END 2022-03-06 23:59 | disposition home health service (06) ==
LOC: WOU 13:15
PROVIDERS: ATTEND Podiatrist Foot & Ankle Surgery
DX: I87.312 Chronic venous hypertension (idiopathic) with ulcer of left lower extremity (principal); L97.822 Non-pressure chronic ulcer of other part of left lower leg with fat layer exposed; L97.828 Non-pressure chronic ulcer of other part of left lower leg with other specified severity; M20.42 Other hammer toe(s) (acquired), left foot; M20.41 Other hammer toe(s) (acquired), right foot; M79.672 Pain in left foot; M79.671 Pain in right foot; L60.3 Nail dystrophy; L84 Corns and callosities; M25.572 Pain in left ankle and joints of left foot
CPT/HCPCS: G0463

== ENCOUNTER 2022-03-12 11:15 | Outpatient (CLI) | payer MEDICARE, BC ==
[2022-03-12] MEDS ORDERED: GENTAMICIN 0.1% CREAM 15 GM TUBE ONE (11:52)
[2022-03-12] MEDS ORDERED: Z GUARD REMEDY 2 OZ OINT TP ONE (11:53)
[2022-03-12] MEDS ORDERED: COLLAGENASE 5 GM TUBE UD TP ONE (11:53)
== END 2022-03-12 23:59 | disposition home or self-care (01) ==
LOC: WOU 11:15
PROVIDERS: ATTEND Podiatrist Foot & Ankle Surgery
DX: I87.312 Chronic venous hypertension (idiopathic) with ulcer of left lower extremity (principal); L97.822 Non-pressure chronic ulcer of other part of left lower leg with fat layer exposed; L84 Corns and callosities; E11.9 Type 2 diabetes mellitus without complications; Z87.891 Personal history of nicotine dependence; Z83.3 Family history of diabetes mellitus; Z88.6 Allergy status to analgesic agent; Z88.8 Allergy status to other drugs, medicaments and biological substances; E78.5 Hyperlipidemia, unspecified; I10 Essential (primary) hypertension; I25.2 Old myocardial infarction; R60.1 Generalized edema; M20.42 Other hammer toe(s) (acquired), left foot; M20.41 Other hammer toe(s) (acquired), right foot; M25.572 Pain in left ankle and joints of left foot
CPT/HCPCS: 11055; G0463

== ENCOUNTER 2022-03-20 14:30 | Outpatient (CLI) | payer MEDICARE, BC ==
[2022-03-20] MEDS ORDERED: Z GUARD REMEDY 2 OZ OINT TP ONE (15:08)
[2022-03-20] MEDS ORDERED: GENTAMICIN 0.1% CREAM 15 GM TUBE ONE (15:08)
[2022-03-20] MEDS ORDERED: COLLAGENASE 5 GM TUBE UD TP ONE (15:08)
== END 2022-03-20 23:59 | disposition home or self-care (01) ==
LOC: WOU 14:30
PROVIDERS: ATTEND Podiatrist Foot & Ankle Surgery
DX: I87.312 Chronic venous hypertension (idiopathic) with ulcer of left lower extremity (principal); L97.822 Non-pressure chronic ulcer of other part of left lower leg with fat layer exposed; R60.1 Generalized edema; I10 Essential (primary) hypertension; E78.5 Hyperlipidemia, unspecified; Z83.3 Family history of diabetes mellitus; Z84.1 Family history of disorders of kidney and ureter; L84 Corns and callosities; B35.1 Tinea unguium; L60.3 Nail dystrophy; M25.572 Pain in left ankle and joints of left foot; M20.42 Other hammer toe(s) (acquired), left foot; M20.41 Other hammer toe(s) (acquired), right foot; M79.672 Pain in left foot; M79.671 Pain in right foot
CPT/HCPCS: G0463

== ENCOUNTER → 2022-03-29 | Outpatient (CLI) | payer MEDICARE, BC ==
[~2022-03-29] MED LIST changes: +COLLAGENASE 5 GM TUBE UD TP ONE; +GENTAMICIN 0.1% CREAM 15 GM TUBE ONE; +HYDROCORTISONE 1% CREAM 28.35 GM TUBE TP ONE; -LIDOCAINE SOLN 4% 50 ML BOTTLE ONE; +Z GUARD REMEDY 2 OZ OINT TP ONE
== END | disposition home or self-care (01) ==
LOC: WOU 11:20
PROVIDERS: ATTEND Podiatrist Foot & Ankle Surgery
DX: I87.312 Chronic venous hypertension (idiopathic) with ulcer of left lower extremity (principal); L97.822 Non-pressure chronic ulcer of other part of left lower leg with fat layer exposed; L97.828 Non-pressure chronic ulcer of other part of left lower leg with other specified severity; M20.42 Other hammer toe(s) (acquired), left foot; M20.41 Other hammer toe(s) (acquired), right foot; L84 Corns and callosities; L60.3 Nail dystrophy; B35.1 Tinea unguium; M79.672 Pain in left foot; M79.671 Pain in right foot; M25.572 Pain in left ankle and joints of left foot
CPT/HCPCS: 11042

== ENCOUNTER 2022-04-03 13:30 | Outpatient (CLI) | payer MEDICARE, BC ==
[2022-04-03] MEDS ORDERED: LIDOCAINE SOLN 4% 50 ML BOTTLE ONE (13:40)
[2022-04-03] MEDS ORDERED: COLLAGENASE 5 GM TUBE UD TP ONE (13:56)
[2022-04-03] MEDS ORDERED: Z GUARD REMEDY 2 OZ OINT TP ONE (14:36)
== END 2022-04-03 23:59 | disposition home health service (06) ==
LOC: WOU 13:30
PROVIDERS: ATTEND Podiatrist Foot & Ankle Surgery
DX: I87.312 Chronic venous hypertension (idiopathic) with ulcer of left lower extremity (principal); L97.822 Non-pressure chronic ulcer of other part of left lower leg with fat layer exposed; L97.828 Non-pressure chronic ulcer of other part of left lower leg with other specified severity; M25.572 Pain in left ankle and joints of left foot; L60.3 Nail dystrophy; B35.1 Tinea unguium; R60.1 Generalized edema; M20.42 Other hammer toe(s) (acquired), left foot; M20.41 Other hammer toe(s) (acquired), right foot; L84 Corns and callosities; M79.672 Pain in left foot; M79.671 Pain in right foot; E11.9 Type 2 diabetes mellitus without complications; I10 Essential (primary) hypertension
CPT/HCPCS: 11042

== ENCOUNTER 2022-04-10 14:00 | Outpatient (CLI) | payer MEDICARE, BC ==
[2022-04-10] MEDS ORDERED: LIDOCAINE SOLN 4% 50 ML BOTTLE ONE (14:17)
[2022-04-10] MEDS ORDERED: GENTAMICIN 0.1% CREAM 15 GM TUBE ONE (14:17)
[2022-04-10] MEDS ORDERED: COLLAGENASE 5 GM TUBE UD TP ONE (14:17)
[2022-04-10] MEDS ORDERED: Z GUARD REMEDY 2 OZ OINT TP ONE (14:18)
== END 2022-04-10 23:59 | disposition home health service (06) ==
LOC: WOU 14:00
PROVIDERS: ATTEND Podiatrist Foot & Ankle Surgery
DX: I87.312 Chronic venous hypertension (idiopathic) with ulcer of left lower extremity (principal); L97.822 Non-pressure chronic ulcer of other part of left lower leg with fat layer exposed; L97.828 Non-pressure chronic ulcer of other part of left lower leg with other specified severity; M20.42 Other hammer toe(s) (acquired), left foot; M20.41 Other hammer toe(s) (acquired), right foot; E11.9 Type 2 diabetes mellitus without complications; I10 Essential (primary) hypertension; L60.3 Nail dystrophy; L84 Corns and callosities; B35.1 Tinea unguium; M25.572 Pain in left ankle and joints of left foot; M79.672 Pain in left foot; M79.671 Pain in right foot; Z87.891 Personal history of nicotine dependence; Z83.3 Family history of diabetes mellitus
CPT/HCPCS: 11042; 11045

== ENCOUNTER 2022-04-24 14:40 | Outpatient (CLI) | payer MEDICARE, BC ==
[2022-04-24] MEDS ORDERED: COLLAGENASE 5 GM TUBE UD TP ONE (14:54)
[2022-04-24] MEDS ORDERED: GENTAMICIN 0.1% CREAM 15 GM TUBE ONE ×2 (14:54→15:13)
[2022-04-24] MEDS ORDERED: Z GUARD REMEDY 2 OZ OINT TP ONE (14:55)
[2022-04-24] MEDS ORDERED: LIDOCAINE SOLN 4% 50 ML BOTTLE ONE (14:55)
== END 2022-04-24 23:59 | disposition home health service (06) ==
LOC: WOU 14:40
PROVIDERS: ATTEND Podiatrist Foot & Ankle Surgery
DX: I87.312 Chronic venous hypertension (idiopathic) with ulcer of left lower extremity (principal); L97.822 Non-pressure chronic ulcer of other part of left lower leg with fat layer exposed; L03.116 Cellulitis of left lower limb; B95.2 Enterococcus as the cause of diseases classified elsewhere; B37.89 Other sites of candidiasis; L84 Corns and callosities; B35.1 Tinea unguium; L60.3 Nail dystrophy; R60.0 Localized edema; M25.572 Pain in left ankle and joints of left foot; M79.672 Pain in left foot; M79.671 Pain in right foot; M20.42 Other hammer toe(s) (acquired), left foot; M20.41 Other hammer toe(s) (acquired), right foot
CPT/HCPCS: 11042; 87077; 87075; 87070; 87106; 87186; A6207

== ENCOUNTER 2022-04-26 11:40 | Outpatient (CLI) | payer MEDICARE, BC ==
[2022-04-26] MEDS ORDERED: LIDOCAINE SOLN 4% 50 ML BOTTLE ONE (11:56)
[2022-04-26] MEDS ORDERED: GENTAMICIN 0.1% CREAM 15 GM TUBE ONE (12:04)
== END 2022-04-26 23:59 | disposition home or self-care (01) ==
LOC: WOU 11:40
PROVIDERS: ATTEND Podiatrist Foot & Ankle Surgery
DX: I87.312 Chronic venous hypertension (idiopathic) with ulcer of left lower extremity (principal); L97.822 Non-pressure chronic ulcer of other part of left lower leg with fat layer exposed; L97.828 Non-pressure chronic ulcer of other part of left lower leg with other specified severity; L03.116 Cellulitis of left lower limb; S90.822A Blister (nonthermal), left foot, initial encounter; X58.XXXA Exposure to other specified factors, initial encounter; Y92.89 Other specified places as the place of occurrence of the external cause; M79.81 Nontraumatic hematoma of soft tissue; I87.2 Venous insufficiency (chronic) (peripheral); M20.42 Other hammer toe(s) (acquired), left foot; M20.41 Other hammer toe(s) (acquired), right foot; M79.672 Pain in left foot; M79.671 Pain in right foot; L84 Corns and callosities
CPT/HCPCS: 10140; 11042; 87070-TC; 87075-TC

== ENCOUNTER 2022-05-01 14:40 | Outpatient (CLI) | payer MEDICARE, BC ==
[~2022-05-01 14:40] MED LIST changes: -COLLAGENASE 5 GM TUBE UD TP ONE; -GENTAMICIN 0.1% CREAM 15 GM TUBE ONE; -HYDROCORTISONE 1% CREAM 28.35 GM TUBE TP ONE; +LIDOCAINE SOLN 4% 50 ML BOTTLE ONE; -Z GUARD REMEDY 2 OZ OINT TP ONE
[2022-05-01] MEDS ORDERED: CLOTRIMAZOLE 1% 15 GM TUBE TP ONE (15:10)
== END 2022-05-01 23:59 | disposition home or self-care (01) ==
LOC: WOU 14:40
PROVIDERS: ATTEND Podiatrist Foot & Ankle Surgery
DX: I87.312 Chronic venous hypertension (idiopathic) with ulcer of left lower extremity (principal); L97.822 Non-pressure chronic ulcer of other part of left lower leg with fat layer exposed; L97.828 Non-pressure chronic ulcer of other part of left lower leg with other specified severity; S90.822D Blister (nonthermal), left foot, subsequent encounter; X58.XXXD Exposure to other specified factors, subsequent encounter; L03.116 Cellulitis of left lower limb; B35.1 Tinea unguium; M20.42 Other hammer toe(s) (acquired), left foot; M20.41 Other hammer toe(s) (acquired), right foot; L84 Corns and callosities; L60.3 Nail dystrophy; M79.672 Pain in left foot; M79.671 Pain in right foot
CPT/HCPCS: G0463

== ENCOUNTER 2022-05-08 14:40 | Outpatient (CLI) | payer MEDICARE, BC ==
[2022-05-08] MEDS ORDERED: LIDOCAINE SOLN 4% 50 ML BOTTLE ONE (14:43)
[2022-05-08] MEDS ORDERED: Z GUARD REMEDY 2 OZ OINT TP ONE (15:32)
[2022-05-08] MEDS ORDERED: HYDROCORTISONE 1% CREAM 28.35 GM TUBE TP ONE (15:33)
[2022-05-08] MEDS ORDERED: CLOTRIMAZOLE 1% 15 GM TUBE TP ONE (15:33)
== END 2022-05-08 23:59 | disposition home or self-care (01) ==
LOC: WOU 14:40
PROVIDERS: ATTEND Podiatrist Foot & Ankle Surgery
DX: I87.312 Chronic venous hypertension (idiopathic) with ulcer of left lower extremity (principal); L97.822 Non-pressure chronic ulcer of other part of left lower leg with fat layer exposed; M25.572 Pain in left ankle and joints of left foot; L03.116 Cellulitis of left lower limb; M20.42 Other hammer toe(s) (acquired), left foot; M20.41 Other hammer toe(s) (acquired), right foot; L60.3 Nail dystrophy; L84 Corns and callosities; B35.1 Tinea unguium; M79.672 Pain in left foot; M79.671 Pain in right foot; I10 Essential (primary) hypertension
CPT/HCPCS: G0463

== ENCOUNTER 2022-05-15 15:15 | Outpatient (CLI) | payer MEDICARE, BC ==
[2022-05-15] MEDS ORDERED: TRIAMCINOLONE ACETONIDE 0.1% CR 15 GM TUBE TP ONE (15:48)
== END 2022-05-15 23:59 | disposition home or self-care (01) ==
LOC: WOU 15:15
PROVIDERS: ATTEND Podiatrist Foot & Ankle Surgery
DX: I87.312 Chronic venous hypertension (idiopathic) with ulcer of left lower extremity (principal); L97.822 Non-pressure chronic ulcer of other part of left lower leg with fat layer exposed; L03.116 Cellulitis of left lower limb; L60.3 Nail dystrophy; R60.0 Localized edema; B35.1 Tinea unguium; M20.42 Other hammer toe(s) (acquired), left foot; M20.41 Other hammer toe(s) (acquired), right foot; M79.672 Pain in left foot; M79.671 Pain in right foot; L84 Corns and callosities; I10 Essential (primary) hypertension
CPT/HCPCS: 87077; 87075; 87070; 87186 ×2; G0463

== ENCOUNTER → 2022-05-22 | Outpatient (CLI) | payer MEDICARE, BC ==
[~2022-05-22] MED LIST changes: +CLOTRIMAZOLE 1% 15 GM TUBE TP ONE; +GENTAMICIN 0.1% CREAM 15 GM TUBE ONE; +HYDROCORTISONE 1% CREAM 28.35 GM TUBE TP ONE
== END | disposition home or self-care (01) ==
LOC: WOU 13:05
PROVIDERS: ATTEND Podiatrist Foot & Ankle Surgery
DX: I87.312 Chronic venous hypertension (idiopathic) with ulcer of left lower extremity (principal); L97.822 Non-pressure chronic ulcer of other part of left lower leg with fat layer exposed; L03.116 Cellulitis of left lower limb; M25.572 Pain in left ankle and joints of left foot; B35.1 Tinea unguium; M20.42 Other hammer toe(s) (acquired), left foot; M20.41 Other hammer toe(s) (acquired), right foot; L60.3 Nail dystrophy; R60.1 Generalized edema
CPT/HCPCS: 11042; 11056; 87070-TC; 87075-TC; 87186-TC

== ENCOUNTER 2022-05-29 14:30 | Outpatient (CLI) | payer MEDICARE, BC ==
[2022-05-29] MEDS ORDERED: LIDOCAINE SOLN 4% 50 ML BOTTLE ONE (14:47)
[2022-05-29] MEDS ORDERED: CLOTRIMAZOLE 1% 15 GM TUBE TP ONE (15:15)
== END 2022-05-29 23:59 | disposition home or self-care (01) ==
LOC: WOU 14:30
PROVIDERS: ATTEND Podiatrist Foot & Ankle Surgery
DX: I87.312 Chronic venous hypertension (idiopathic) with ulcer of left lower extremity (principal); L97.822 Non-pressure chronic ulcer of other part of left lower leg with fat layer exposed; L03.116 Cellulitis of left lower limb; B96.5 Pseudomonas (aeruginosa) (mallei) (pseudomallei) as the cause of diseases classified elsewhere; B95.8 Unspecified staphylococcus as the cause of diseases classified elsewhere; B35.1 Tinea unguium; M20.42 Other hammer toe(s) (acquired), left foot; M20.41 Other hammer toe(s) (acquired), right foot; L84 Corns and callosities; M79.672 Pain in left foot; M79.671 Pain in right foot; L60.3 Nail dystrophy; R60.1 Generalized edema; I10 Essential (primary) hypertension
CPT/HCPCS: 17250

== ENCOUNTER 2022-06-05 14:22 | Outpatient (CLI) | payer MEDICARE, BC ==
[2022-06-05] MEDS ORDERED: GENTAMICIN 0.1% CREAM 15 GM TUBE ONE (14:42)
== END 2022-06-05 23:59 | disposition home or self-care (01) ==
LOC: WOU 14:22
PROVIDERS: ATTEND Podiatrist Foot & Ankle Surgery
DX: I87.312 Chronic venous hypertension (idiopathic) with ulcer of left lower extremity (principal); L97.822 Non-pressure chronic ulcer of other part of left lower leg with fat layer exposed; M25.572 Pain in left ankle and joints of left foot; M20.42 Other hammer toe(s) (acquired), left foot; M20.41 Other hammer toe(s) (acquired), right foot; L84 Corns and callosities; M79.672 Pain in left foot; M79.671 Pain in right foot; L60.3 Nail dystrophy
CPT/HCPCS: 11042

== ENCOUNTER 2022-06-12 14:54 | Outpatient (CLI) | payer MEDICARE, BC ==
[2022-06-12] MEDS ORDERED: CLOTRIMAZOLE 1% 15 GM TUBE TP ONE (15:16)
== END 2022-06-12 23:59 | disposition home or self-care (01) ==
LOC: WOU 14:54
PROVIDERS: ATTEND Podiatrist Foot & Ankle Surgery
DX: I87.312 Chronic venous hypertension (idiopathic) with ulcer of left lower extremity (principal); L97.822 Non-pressure chronic ulcer of other part of left lower leg with fat layer exposed; L03.116 Cellulitis of left lower limb; M20.42 Other hammer toe(s) (acquired), left foot; M20.41 Other hammer toe(s) (acquired), right foot; M25.572 Pain in left ankle and joints of left foot; L84 Corns and callosities; L60.3 Nail dystrophy; R60.1 Generalized edema; M79.672 Pain in left foot; M79.671 Pain in right foot
CPT/HCPCS: 11042

== ENCOUNTER 2022-06-19 13:08 | Outpatient (CLI) | payer MEDICARE, BC ==
[2022-06-19] MEDS ORDERED: LIDOCAINE SOLN 4% 50 ML BOTTLE ONE (13:14)
[2022-06-19] MEDS ORDERED: GENTAMICIN 0.1% CREAM 15 GM TUBE ONE (13:47)
[2022-06-19] MEDS ORDERED: CLOTRIMAZOLE 1% 15 GM TUBE TP ONE (13:48)
== END 2022-06-19 23:59 | disposition home or self-care (01) ==
LOC: WOU 13:08
PROVIDERS: ATTEND Podiatrist Foot & Ankle Surgery
DX: I87.312 Chronic venous hypertension (idiopathic) with ulcer of left lower extremity (principal); L97.822 Non-pressure chronic ulcer of other part of left lower leg with fat layer exposed; L84 Corns and callosities; L60.3 Nail dystrophy; M20.42 Other hammer toe(s) (acquired), left foot; M20.41 Other hammer toe(s) (acquired), right foot; M25.572 Pain in left ankle and joints of left foot; B35.1 Tinea unguium; Z87.891 Personal history of nicotine dependence
CPT/HCPCS: 11042; 11056

== ENCOUNTER 2022-06-28 11:52 | Outpatient (CLI) | payer MEDICARE, BC ==
[2022-06-28] MEDS ORDERED: GENTAMICIN 0.1% CREAM 15 GM TUBE ONE (12:47)
[2022-06-28] MEDS ORDERED: CLOTRIMAZOLE 1% 15 GM TUBE TP ONE (12:48)
[2022-06-28] MEDS ORDERED: UREA 10% -AHA 4% CREAM 57 GM TUBE ONE (12:48)
== END 2022-06-28 23:59 | disposition home or self-care (01) ==
LOC: WOU 11:52
PROVIDERS: ATTEND Podiatrist Foot & Ankle Surgery
DX: I87.312 Chronic venous hypertension (idiopathic) with ulcer of left lower extremity (principal); L97.822 Non-pressure chronic ulcer of other part of left lower leg with fat layer exposed; M20.42 Other hammer toe(s) (acquired), left foot; M20.41 Other hammer toe(s) (acquired), right foot; B35.1 Tinea unguium; L84 Corns and callosities; M79.672 Pain in left foot; M79.671 Pain in right foot; L60.3 Nail dystrophy; R60.1 Generalized edema; M25.572 Pain in left ankle and joints of left foot; I10 Essential (primary) hypertension
CPT/HCPCS: G0463

== ENCOUNTER 2022-07-03 14:06 | Outpatient (CLI) | payer MEDICARE, BC ==
[2022-07-03] MEDS ORDERED: LIDOCAINE SOLN 4% 50 ML BOTTLE ONE (14:25)
== END 2022-07-03 23:59 | disposition home or self-care (01) ==
LOC: WOU 14:06
PROVIDERS: ATTEND Podiatrist Foot & Ankle Surgery
DX: I87.312 Chronic venous hypertension (idiopathic) with ulcer of left lower extremity (principal); L97.822 Non-pressure chronic ulcer of other part of left lower leg with fat layer exposed; I87.2 Venous insufficiency (chronic) (peripheral); L84 Corns and callosities; B35.1 Tinea unguium; M20.42 Other hammer toe(s) (acquired), left foot; M20.41 Other hammer toe(s) (acquired), right foot; L60.3 Nail dystrophy; R60.1 Generalized edema; M79.672 Pain in left foot; M79.671 Pain in right foot; I10 Essential (primary) hypertension
CPT/HCPCS: 11042

== ENCOUNTER 2022-07-10 13:55 | Outpatient (CLI) | payer MEDICARE, BC | END 2022-07-10 23:59 | disposition home or self-care (01) | LOC: WOU 13:55 | PROVIDERS: ATTEND Podiatrist Foot & Ankle Surgery | DX: I87.312 Chronic venous hypertension (idiopathic) with ulcer of left lower extremity (principal); L97.322 Non-pressure chronic ulcer of left ankle with fat layer exposed; L03.116 Cellulitis of left lower limb; M20.42 Other hammer toe(s) (acquired), left foot; M20.41 Other hammer toe(s) (acquired), right foot; M25.572 Pain in left ankle and joints of left foot; M79.672 Pain in left foot; M79.671 Pain in right foot; L84 Corns and callosities; L60.3 Nail dystrophy | CPT/HCPCS: 11042 ==

== ENCOUNTER 2022-07-17 14:40 | Outpatient (CLI) | payer MEDICARE, BC ==
[~2022-07-17 14:40] MED LIST changes: -CLOTRIMAZOLE 1% 15 GM TUBE TP ONE; -GENTAMICIN 0.1% CREAM 15 GM TUBE ONE; -HYDROCORTISONE 1% CREAM 28.35 GM TUBE TP ONE
[2022-07-17] MEDS ORDERED: CLOTRIMAZOLE 1% 15 GM TUBE TP ONE (14:55)
[2022-07-17] MEDS ORDERED: UREA 10% -AHA 4% CREAM 57 GM TUBE ONE (14:56)
[2022-07-17] MEDS ORDERED: GENTAMICIN 0.1% CREAM 15 GM TUBE ONE (14:56)
== END 2022-07-17 23:59 | disposition home or self-care (01) ==
LOC: WOU 14:40
PROVIDERS: ATTEND Podiatrist Foot & Ankle Surgery
DX: I87.312 Chronic venous hypertension (idiopathic) with ulcer of left lower extremity (principal); L97.822 Non-pressure chronic ulcer of other part of left lower leg with fat layer exposed; L84 Corns and callosities; L60.3 Nail dystrophy; M20.42 Other hammer toe(s) (acquired), left foot; M20.41 Other hammer toe(s) (acquired), right foot; R60.1 Generalized edema; M25.572 Pain in left ankle and joints of left foot; M79.672 Pain in left foot; M79.671 Pain in right foot; B35.1 Tinea unguium
CPT/HCPCS: 11042

== ENCOUNTER 2022-07-31 14:21 | Outpatient (CLI) | payer MEDICARE, BC ==
[2022-07-31] MEDS ORDERED: GENTAMICIN 0.1% CREAM 15 GM TUBE ONE (14:42)
== END 2022-07-31 23:59 | disposition home or self-care (01) ==
LOC: WOU 14:21
PROVIDERS: ATTEND Podiatrist Foot & Ankle Surgery
DX: I87.312 Chronic venous hypertension (idiopathic) with ulcer of left lower extremity (principal); L97.322 Non-pressure chronic ulcer of left ankle with fat layer exposed; L03.116 Cellulitis of left lower limb; M25.572 Pain in left ankle and joints of left foot; M20.42 Other hammer toe(s) (acquired), left foot; M20.41 Other hammer toe(s) (acquired), right foot; L60.3 Nail dystrophy; R60.1 Generalized edema; B35.1 Tinea unguium; L84 Corns and callosities
CPT/HCPCS: 11042

== ENCOUNTER 2022-08-09 10:35 | Outpatient (CLI) | payer MEDICARE, BC ==
[2022-08-09] MEDS ORDERED: LIDOCAINE SOLN 4% 50 ML BOTTLE ONE (11:02)
[2022-08-09] MEDS ORDERED: TRIAMCINOLONE ACETONIDE 0.1% CR 15 GM TUBE TP ONE (11:19)
[2022-08-09 12:04] LABS: BASOPHILS % (AUTO) 0.8 % (0.0-2.0); EOSINOPHILS % (AUTO) 10.8 % (0.0-6.0); HEMATOCRIT 34 % (33-45); HEMOGLOBIN 10.9 g/dL (11.5-14.8); LYMPHOCYTES # (AUTO) 0.8 K/uL (0.8-4.8); LYMPHOCYTES % (AUTO) 12.3 % (20.0-44.0); MEAN CORPUSCULAR HGB CONC 32 g/dl (31.0-36.0); MEAN CORPUSCULAR VOLUME 90 fL (82-100); MONOCYTES # (AUTO) 0.7 K/uL (0.1-1.30); MONOCYTES % (AUTO) 11.2 % (2.0-12.0); NEUTROPHILS # (AUTO) 4.2 K/uL (1.8-8.9); NEUTROPHILS % (AUTO) 64.9 % (43.0-81.0); PLATELET COUNT (AUTO) 169 K/uL (150-450); RED BLOOD CELL COUNT(AUTO) 3.81 MIL/uL (4.0-5.2); WHITE BLOOD COUNT (AUTO) 6.4 K/uL (4.3-11.0)
== END 2022-08-09 23:59 | disposition home health service (06) ==
LOC: WOU 10:35
PROVIDERS: ATTEND Podiatrist Foot & Ankle Surgery
DX: I87.312 Chronic venous hypertension (idiopathic) with ulcer of left lower extremity (principal); L97.322 Non-pressure chronic ulcer of left ankle with fat layer exposed; L03.116 Cellulitis of left lower limb; I89.0 Lymphedema, not elsewhere classified; M20.42 Other hammer toe(s) (acquired), left foot; M20.41 Other hammer toe(s) (acquired), right foot; L60.3 Nail dystrophy; R60.1 Generalized edema; B35.1 Tinea unguium; M25.572 Pain in left ankle and joints of left foot; L84 Corns and callosities
CPT/HCPCS: 11042; 36415; 85025-TC; 85652-TC; 86140-TC

== ENCOUNTER 2022-08-14 14:49 | Outpatient (CLI) | payer MEDICARE, BC | END 2022-08-14 23:59 | disposition home health service (06) | LOC: WOU 14:49 | PROVIDERS: ATTEND Podiatrist Foot & Ankle Surgery | DX: I87.312 Chronic venous hypertension (idiopathic) with ulcer of left lower extremity (principal); L97.322 Non-pressure chronic ulcer of left ankle with fat layer exposed; I87.2 Venous insufficiency (chronic) (peripheral); I89.0 Lymphedema, not elsewhere classified; B35.1 Tinea unguium; L84 Corns and callosities; L60.3 Nail dystrophy; L03.116 Cellulitis of left lower limb; M20.42 Other hammer toe(s) (acquired), left foot; M20.41 Other hammer toe(s) (acquired), right foot; M25.572 Pain in left ankle and joints of left foot | CPT/HCPCS: 11042 ==

== ENCOUNTER → 2022-09-18 | Outpatient (CLI) | payer MEDICARE, BC | END | disposition home health service (06) | LOC: WOU 15:06 | PROVIDERS: ATTEND Podiatrist Foot & Ankle Surgery | DX: I87.312 Chronic venous hypertension (idiopathic) with ulcer of left lower extremity (principal); L97.822 Non-pressure chronic ulcer of other part of left lower leg with fat layer exposed; L84 Corns and callosities; B35.1 Tinea unguium; L60.3 Nail dystrophy; M20.42 Other hammer toe(s) (acquired), left foot; M20.41 Other hammer toe(s) (acquired), right foot; M79.672 Pain in left foot; M79.671 Pain in right foot; M25.572 Pain in left ankle and joints of left foot | CPT/HCPCS: G0463 ==

== ENCOUNTER 2022-09-25 15:59 | Outpatient (CLI) | payer MEDICARE, BC ==
[~2022-09-25 15:59] MED LIST changes: +COLLAGENASE 5 GM TUBE UD TP ONE; +UREA 10% -AHA 4% CREAM 57 GM TUBE ONE
== END 2022-09-25 23:59 | disposition home health service (06) ==
LOC: WOU 15:59
PROVIDERS: ATTEND Podiatrist Foot & Ankle Surgery
DX: I87.312 Chronic venous hypertension (idiopathic) with ulcer of left lower extremity (principal); L97.822 Non-pressure chronic ulcer of other part of left lower leg with fat layer exposed; L84 Corns and callosities; M20.42 Other hammer toe(s) (acquired), left foot; M20.41 Other hammer toe(s) (acquired), right foot; L60.3 Nail dystrophy; M25.572 Pain in left ankle and joints of left foot
CPT/HCPCS: G0463

== ENCOUNTER 2022-10-16 14:30 | Outpatient (CLI) | payer MEDICARE, BC ==
[2022-10-16] MEDS ORDERED: CLOTRIMAZOLE 1% 15 GM TUBE TP ONE (15:17)
[2022-10-16] MEDS ORDERED: COLLAGENASE 5 GM TUBE UD TP ONE (15:17)
== END 2022-10-16 23:59 | disposition home health service (06) ==
LOC: WOU 14:30
PROVIDERS: ATTEND Podiatrist Foot & Ankle Surgery
DX: I87.312 Chronic venous hypertension (idiopathic) with ulcer of left lower extremity (principal); L97.822 Non-pressure chronic ulcer of other part of left lower leg with fat layer exposed; L03.116 Cellulitis of left lower limb; L84 Corns and callosities; B35.1 Tinea unguium; M20.42 Other hammer toe(s) (acquired), left foot; M20.41 Other hammer toe(s) (acquired), right foot; M25.572 Pain in left ankle and joints of left foot; L60.3 Nail dystrophy; M79.672 Pain in left foot; M79.671 Pain in right foot; R60.1 Generalized edema
CPT/HCPCS: 11042

== ENCOUNTER 2022-10-23 14:39 | Outpatient (CLI) | payer MEDICARE, BC | END 2022-10-23 23:59 | disposition home health service (06) | LOC: WOU 14:39 | PROVIDERS: ATTEND Podiatrist Foot & Ankle Surgery | DX: I87.312 Chronic venous hypertension (idiopathic) with ulcer of left lower extremity (principal); L97.322 Non-pressure chronic ulcer of left ankle with fat layer exposed; L03.116 Cellulitis of left lower limb; R60.0 Localized edema; B35.1 Tinea unguium; L84 Corns and callosities; M20.42 Other hammer toe(s) (acquired), left foot; M20.41 Other hammer toe(s) (acquired), right foot; L60.3 Nail dystrophy; M79.672 Pain in left foot; M79.671 Pain in right foot | CPT/HCPCS: 11042; 87070; A6454 ==

== ENCOUNTER 2022-10-30 14:58 | Outpatient (CLI) | payer MEDICARE, BC | END 2022-10-30 23:59 | disposition home health service (06) | LOC: WOU 14:58 | PROVIDERS: ATTEND Podiatrist Foot & Ankle Surgery | DX: I87.312 Chronic venous hypertension (idiopathic) with ulcer of left lower extremity (principal); L97.822 Non-pressure chronic ulcer of other part of left lower leg with fat layer exposed; L03.116 Cellulitis of left lower limb; M20.42 Other hammer toe(s) (acquired), left foot; M20.41 Other hammer toe(s) (acquired), right foot; L60.3 Nail dystrophy; L84 Corns and callosities; M25.572 Pain in left ankle and joints of left foot; M79.672 Pain in left foot; M79.671 Pain in right foot; B35.1 Tinea unguium; I10 Essential (primary) hypertension | CPT/HCPCS: 11042; A6454 ==

== ENCOUNTER 2022-11-06 14:24 | Outpatient (CLI) | payer MEDICARE, BC | END 2022-11-06 23:59 | disposition home health service (06) | LOC: WOU 14:24 | PROVIDERS: ATTEND Specialist | DX: I87.312 Chronic venous hypertension (idiopathic) with ulcer of left lower extremity (principal); L97.822 Non-pressure chronic ulcer of other part of left lower leg with fat layer exposed; L03.116 Cellulitis of left lower limb; M20.42 Other hammer toe(s) (acquired), left foot; M20.41 Other hammer toe(s) (acquired), right foot; B35.1 Tinea unguium; L60.3 Nail dystrophy; M25.572 Pain in left ankle and joints of left foot | CPT/HCPCS: 29580; A6454 ×2 ==

== ENCOUNTER → 2022-11-13 | Outpatient (CLI) | payer MEDICARE, BC | END | disposition home health service (06) | LOC: WOU 11:00 | PROVIDERS: ATTEND Podiatrist Foot & Ankle Surgery | DX: I87.312 Chronic venous hypertension (idiopathic) with ulcer of left lower extremity (principal); L97.822 Non-pressure chronic ulcer of other part of left lower leg with fat layer exposed; L03.116 Cellulitis of left lower limb; M20.42 Other hammer toe(s) (acquired), left foot; M20.41 Other hammer toe(s) (acquired), right foot; L84 Corns and callosities; M79.672 Pain in left foot; M79.671 Pain in right foot; L60.3 Nail dystrophy; R60.1 Generalized edema; B35.1 Tinea unguium | CPT/HCPCS: 11042; A6454 ==

== ENCOUNTER 2022-11-20 13:16 | Outpatient (CLI) | payer MEDICARE, BC ==
[2022-11-20] MEDS ORDERED: UREA 10% -AHA 4% CREAM 57 GM TUBE ONE (13:32)
== END 2022-11-20 23:59 | disposition home health service (06) ==
LOC: WOU 13:16
PROVIDERS: ATTEND Podiatrist Foot & Ankle Surgery
DX: I87.312 Chronic venous hypertension (idiopathic) with ulcer of left lower extremity (principal); L97.822 Non-pressure chronic ulcer of other part of left lower leg with fat layer exposed; L03.116 Cellulitis of left lower limb; B96.5 Pseudomonas (aeruginosa) (mallei) (pseudomallei) as the cause of diseases classified elsewhere; B95.2 Enterococcus as the cause of diseases classified elsewhere; L84 Corns and callosities; I10 Essential (primary) hypertension; L60.3 Nail dystrophy; M79.672 Pain in left foot; M79.671 Pain in right foot; R60.1 Generalized edema; B35.1 Tinea unguium
CPT/HCPCS: A6454; G0463

== ENCOUNTER 2022-11-27 14:14 | Outpatient (CLI) | payer MEDICARE, BC | END 2022-11-27 23:59 | disposition home health service (06) | LOC: WOU 14:14 | PROVIDERS: ATTEND Podiatrist Foot & Ankle Surgery | DX: I87.312 Chronic venous hypertension (idiopathic) with ulcer of left lower extremity (principal); L97.822 Non-pressure chronic ulcer of other part of left lower leg with fat layer exposed; B35.1 Tinea unguium; L60.3 Nail dystrophy; M20.42 Other hammer toe(s) (acquired), left foot; M20.41 Other hammer toe(s) (acquired), right foot; M79.672 Pain in left foot; M79.671 Pain in right foot; R60.1 Generalized edema | CPT/HCPCS: 29580 ==

== ENCOUNTER 2022-12-04 15:14 | Outpatient (CLI) | payer MEDICARE, BC | END 2022-12-04 23:59 | disposition home health service (06) | LOC: WOU 15:14 | PROVIDERS: ATTEND Podiatrist Foot & Ankle Surgery | DX: I87.312 Chronic venous hypertension (idiopathic) with ulcer of left lower extremity (principal); L97.828 Non-pressure chronic ulcer of other part of left lower leg with other specified severity; M79.672 Pain in left foot; M79.671 Pain in right foot; M20.42 Other hammer toe(s) (acquired), left foot; M20.41 Other hammer toe(s) (acquired), right foot; M25.572 Pain in left ankle and joints of left foot; L60.3 Nail dystrophy; R60.1 Generalized edema; B35.1 Tinea unguium; L84 Corns and callosities | CPT/HCPCS: 29580; A6454 ==

== ENCOUNTER 2022-12-20 12:55 | Outpatient (CLI) | payer MEDICARE, BC | END 2022-12-20 23:59 | disposition home health service (06) | LOC: WOU 12:55 | PROVIDERS: ATTEND Podiatrist Foot & Ankle Surgery | DX: L84 Corns and callosities (principal); B35.1 Tinea unguium; R60.1 Generalized edema; M20.42 Other hammer toe(s) (acquired), left foot; M20.41 Other hammer toe(s) (acquired), right foot; M79.672 Pain in left foot; M79.671 Pain in right foot; M25.572 Pain in left ankle and joints of left foot | CPT/HCPCS: G0463 ==